=== PATIENT | male | born 1990 | race Caucasian/White ===

== ENCOUNTER 2020-06-01 13:27 | Emergency (ER) | payer OTHER ==
[~2020-06-01] VITALS: Ht 172.7 cm; Wt 78.0 kg
[2020-06-01 15:17] VITALS: BP 121/84
== END 2020-06-01 15:17 | disposition home or self-care (01) ==
LOC: M.ERS 13:27
DX: F45.8 Other somatoform disorders (principal); F17.210 Nicotine dependence, cigarettes, uncomplicated